=== PATIENT | female | born 1980 | race Caucasian/White ===

== ENCOUNTER → 2017-03-15 | Outpatient (CLI) | payer OTHER ==
[~2017-03-15] MED LIST: CALC500T83; POLY335025; PRENTAB26 PO
[2017-03-15 12:41] LABS: HEMATOCRIT 42.2 % (37-47); MEAN CELL VOLUME 93.6 fL (80-100); MEAN CORPUSCULAR HEMOGLOBIN 31.9 pg (25-34); MEAN CORPUSCULAR HGB CONC 34.1 g/dl (32-36); MEAN PLATELET VOLUME 10.5 fL (7.4-10.4); PLATELET COUNT 226 K/uL (130-400); RED BLOOD COUNT 4.51 M/uL (4.2-5.4); WHITE BLOOD COUNT 5.66 K/uL (4.8-10.8)
== END | disposition home or self-care (01) ==
LOC: C.LAB1850 10:05
PROVIDERS: ATTEND Obstetrics & Gynecology
DX: N93.8 Other specified abnormal uterine and vaginal bleeding (principal)

== ENCOUNTER → 2017-09-29 | Outpatient (CLI) | payer OTHER | END | disposition home or self-care (01) | LOC: C.PAPS 13:51 | PROVIDERS: ATTEND Obstetrics & Gynecology | DX: Z12.4 Encounter for screening for malignant neoplasm of cervix (principal) ==

== ENCOUNTER → 2017-10-06 | Outpatient (CLI) | payer OTHER ==
--- NOTE | 2017-10-06 08:52 | DIAGNOSTIC IMAGING REPORT ---
PELVIC ULTRASOUND CLINICAL HISTORY: Dysfunctional uterine bleeding. Evaluate for polyps. COMPARISON STUDY: None. TECHNIQUE: Transabdominal and transvaginal sonography of the pelvis was performed. FINDINGS: The uterus measures 8 x 4.5 x 5.7 cm. Endometrium measures 2 mm in thickness. No endometrial lesion is identified on this examination. The uterus is unremarkable. The right ovary measures 5.3 x 1.6 x 1.9 cm and the left ovary measures 4 x 2.7 x 2.2 cm. Several follicles are noted within the ovaries. There is color flow within each ovary. Trace free fluid within the pelvis is likely physiologic. IMPRESSION: 1. Unremarkable pelvic ultrasound. 2. Endometrial thickness of 2 mm. No endometrial lesion identified. 3. Trace free fluid which is likely physiologic. Electronically signed by: Raul Monroy M.D. 10/06/2017 8:50 AM Dictated Date/Time: 10/06/2017 8:43 AM
== END | disposition home or self-care (01) ==
LOC: C.ULTR 07:50
PROVIDERS: ATTEND Obstetrics & Gynecology
DX: N93.8 Other specified abnormal uterine and vaginal bleeding (principal)